=== PATIENT | male | born 1965 | race Asian ===

== ENCOUNTER 2018-02-15 07:04 | Day surgery (SDC) | payer OTHER ==
[~2018-02-15 07:04] MED LIST: CEFAZOLIN 1 GM INJ
[2018-02-15 08:05] LABS: ADD MAN DIFF? NO
[2018-02-15 08:08] LABS: BASOPHIL # 0.1 10^3/ul (0.0-0.1); BASOPHILS % 0.6 % (0.0-2.0); EOSINOPHILS # 0.4 10^3/ul (0.0-0.5); EOSINOPHILS % 3.9 % (0.0-7.0); HEMATOCRIT 49.3 % (42.0-52.0); HEMOGLOBIN 16.6 g/dl (14.0-18.0); LYMPHOCYTES # 2.7 10^3/ul (0.8-2.9); MEAN CORPUSCULAR HEMOGLOBIN 30.9 pg (29.0-33.0); MEAN CORPUSCULAR HGB CONC 33.7 g/dl (32.0-37.0); MEAN CORPUSCULAR VOLUME 91.8 fl (82.0-101.0); MEAN PLATELET VOLUME 10.2 fl (7.4-10.4); MONOCYTE # 0.7 10^3/ul (0.3-0.9); MONOCYTES % 7.3 % (0.0-11.0); NEUTROPHILS % 60.8 % (39.0-77.0); PLATELET COUNT 197 10^3/UL (140-415); RED BLOOD COUNT 5.37 10^6/ul (4.70-6.10); RED CELL DISTRIBUTION WIDTH 11.9 % (11.5-14.5)
[2018-02-15 08:08] LABS: WHITE BLOOD COUNT 9.9 10^3/ul (4.8-10.8)
[2018-02-15 08:26] LABS: ALANINE AMINOTRANSFERASE 50 IU/L (13-69); ALBUMIN 4.1 g/dl (3.3-4.9); ALBUMIN/GLOBULIN RATIO 1.24; ALKALINE PHOSPHATASE 86 IU/L (42-121); ANION GAP 11 (8-16); ASPARTATE AMINO TRANSFERASE 31 IU/L (15-46); BILIRUBIN,INDIRECT 0.3 mg/dl (0-1.1); BILIRUBIN,TOTAL 0.3 mg/dl (0.2-1.3); BLOOD UREA NITROGEN 9 mg/dl (7-20); CALCIUM 8.9 mg/dl (8.4-10.2); CARBON DIOXIDE 26 mmol/L (21-31); CHLORIDE 110 mmol/L (97-110); CREATININE 0.67 mg/dl (0.61-1.24); GLUCOSE 188 mg/dl (70-220); POTASSIUM 4.1 mmol/L (3.5-5.1); SODIUM 143 mmol/L (135-144); TOTAL PROTEIN 7.4 g/dl (6.1-8.1)
[2018-02-15 08:28] LABS: INR 0.83; PROTIME 11.5 Sec (11.9-14.9); PT RATIO 0.9
[2018-02-15 08:29] LABS: PARTIAL THROMBOPLASTIN TIME 27.9 Sec (25.0-35.0)
[2018-02-15] MEDS ORDERED: LIDOCAINE 1%/EPI 30 ML INJ (09:34)
[2018-02-15] MEDS: LIDOCAINE 1.5%/EPI MPF (SDV) 30 ML VIAL INJ (09:35)
[2018-02-15] MEDS ORDERED: MIDAZOLAM 1 MG/ML 2 ML INJ (09:47)
[2018-02-15] MEDS ORDERED: FENTAnyl 50 MCG/ML VIAL (09:48)
[2018-02-15] MEDS ORDERED: ALBUTEROL 0.083% (NEB) 2.5 MG/3 ML AMP HHN (10:30)
[2018-02-15] MEDS ORDERED: FENTAnyl 50 MCG/ML VIAL IV ×3 (10:30)
[2018-02-15] MEDS ORDERED: hydrALAzine 20 MG INJ IV (10:30)
[2018-02-15] MEDS ORDERED: DIPHENHYDRAMINE 50 MG INJ IV (10:30)
[2018-02-15] MEDS ORDERED: MEPERIDINE 25 MG INJ IV (10:30)
[2018-02-15] MEDS ORDERED: OXYCODONE/ACETAMINOPHEN (5/325) TAB PO ×2 (10:30)
[2018-02-15] MEDS ORDERED: ONDANSETRON 4 MG INJ IV (10:30)
[2018-02-15] MEDS ORDERED: EPHEDrine SULFATE 50 MG/5 ML SYG IV (10:30)
[2018-02-15] MEDS ORDERED: LABETALOL HCL 20MG INJ IV (10:30)
== END 2018-02-15 11:45 | disposition home or self-care (01) ==
LOC: SDS 07:04
DX: J35.9 Chronic disease of tonsils and adenoids, unspecified (principal); J35.8 Other chronic diseases of tonsils and adenoids
CPT/HCPCS: 42800; 80053; 82962; 85025; 85610; 85730; 88307; 93005